=== PATIENT | female | born 1990 | race Caucasian/White ===

== ENCOUNTER 2016-06-23 23:19 | Emergency (ER) | payer BC ==
--- NOTE | 2016-06-24 01:40 | ED CLINICAL REPORT ---
Clinical Report - Physicians/Mid Levels [facility] [address] [place] [address] 06/23/2016 23:21 [id number] Time Seen: 00:07. Arrived- By private vehicle. Historian- patient. HISTORY OF PRESENT ILLNESS Chief Complaint: Injury to the left hand. The injury happened just prior to arrival. Occurred at work. The patient sustained a laceration from broken glass. Patient is experiencing mild pain. No other injury. REVIEW OF SYSTEMS The patient sustained a laceration. No swelling, tingling, numbness, weakness or foreign body. All systems otherwise negative, except as recorded above. PAST HISTORY Problems: no known problems. Additional Surgeries: Adenoidectomy. Tonsillectomy. Medications: Nexplanon Subcutaneous. Allergies: No Known Drug Allergy. SOCIAL HISTORY Smoker- current status unknown. Alcohol use. History of drug use: marijuana. ADDITIONAL NOTES The nursing notes have been reviewed. PHYSICAL EXAM Vital Signs: 06/23/2016 23:26 BP: 131/77. HR: 68. RR: 15. O2 saturation: 100%. Temp: 98.6 F. Jeffers-Brooke pain scale: 2/10. Have been reviewed. Appearance: Alert. Oriented X3. No acute distress. Head: Head atraumatic. Eyes: Eyes normal inspection. ENT: Nose normal. Neck: No decreased ROM in the neck. CVS: Pulses normal. Respiratory: No respiratory distress. Back: ROM normal. Skin: Skin warm and dry. Extremities: Dorsal left hand: mild tenderness and subcutaneous 2.0 cm laceration of the distal and radial aspect of the dorsal hand. SEE LACERATION PROCEDURE NOTE #1. Neurovascular intact distally. No erythema, swelling, abrasion, ecchymosis or puncture wound. No foreign body or deformity. No limitation of extension. No wrist injury. Hand and wrist exam otherwise negative. Extremities otherwise negative. Neuro, Vascular and Tendons: Vascular status intact. Sensation intact. Motor intact. Tendon function intact. Neuro: No motor deficit. No sensory deficit. (Grossly oriented.). LABS, X-RAYS, AND EKG Pulse Oximetry: 06/23/2016 23:26 O2 saturation: 100%. (FIO2 - room air). Interpretation: normal. PROGRESS AND PROCEDURES Laceration Repair: Location: left hand. Length: 2 cm. Complexity: simple (local anesthesia used and sutured). Wound depth/shape- subcutaneous and linear. Wound is clean. Distal neuro/vascular/tendon status normal. Tendon examined. No tendon deficit. Local anesthesia provided using 2% lidocaine no epi. Prepped with Betadine. Wound explored, cleansed, irrigated and examined to the base in bloodless field with normal saline. Closure of skin: interrupted 5-0 nylon (4 sutures). Post-procedure: she is stable and there are no complications. Bleeding is controlled and neuro-vascular status is intact distal to the wound. Dressing applied. Tetanus immunization up-to-date. Patient counseled in person regarding the patient's stable condition, diagnosis and need for follow-up. Concerns were addressed. Old medical records reviewed. Disposition: Discharged. Condition: stable and improved. CLINICAL IMPRESSION Single superficial laceration to the left index finger.No foreign body present. INSTRUCTIONS Apply ice for 15-20 minutes three times a day as needed and until better. Don't apply ice directly to skin and don't use while asleep. Protect wound and keep wound area clean. (Do not immerse, rub or scrub the wound until sutures are removed.). Apply neosporin daily. Sutures should be removed in seven days. Warnings: GENERAL WARNINGS: Return or contact your physician immediately if your condition worsens or changes unexpectedly, if not improving as expected, or if other problems arise. Your Current Medications: CONTINUE TAKING THE FOLLOWING MEDICATIONS: Nexplanon Subcutaneous. Follow-up: Follow up with your doctor in seven days for suture removal. Understanding of the discharge instructions verbalized by patient. (Electronically signed by Vilma Carey MD 06/29/2016 15:09)
--- NOTE | 2016-06-24 01:40 | ED CLINICAL REPORT ---
Clinical Report - Physicians/Mid Levels [facility] [address] [place] [address] 06/23/2016 23:21 [id number] Time Seen: 00:07. Arrived- By private vehicle. Historian- patient. HISTORY OF PRESENT ILLNESS Chief Complaint: Injury to the left hand. The injury happened just prior to arrival. Occurred at work. The patient sustained a laceration from broken glass. Patient is experiencing mild pain. No other injury. REVIEW OF SYSTEMS The patient sustained a laceration. No swelling, tingling, numbness, weakness or foreign body. All systems otherwise negative, except as recorded above. PAST HISTORY Problems: no known problems. Additional Surgeries: Adenoidectomy. Tonsillectomy. Medications: Nexplanon Subcutaneous. Allergies: No Known Drug Allergy. SOCIAL HISTORY Smoker- current status unknown. Alcohol use. History of drug use: marijuana. ADDITIONAL NOTES The nursing notes have been reviewed. PHYSICAL EXAM Vital Signs: 06/23/2016 23:26 BP: 131/77. HR: 68. RR: 15. O2 saturation: 100%. Temp: 98.6 F. Jeffers-Brooke pain scale: 2/10. Have been reviewed. Appearance: Alert. Oriented X3. No acute distress. Head: Head atraumatic. Eyes: Eyes normal inspection. ENT: Nose normal. Neck: No decreased ROM in the neck. CVS: Pulses normal. Respiratory: No respiratory distress. Back: ROM normal. Skin: Skin warm and dry. Extremities: Dorsal left hand: mild tenderness and subcutaneous 2.0 cm laceration of the distal and radial aspect of the dorsal hand. SEE LACERATION PROCEDURE NOTE #1. Neurovascular intact distally. No erythema, swelling, abrasion, ecchymosis or puncture wound. No foreign body or deformity. No limitation of extension. No wrist injury. Hand and wrist exam otherwise negative. Extremities otherwise negative. Neuro, Vascular and Tendons: Vascular status intact. Sensation intact. Motor intact. Tendon function intact. Neuro: No motor deficit. No sensory deficit. (Grossly oriented.). LABS, X-RAYS, AND EKG Pulse Oximetry: 06/23/2016 23:26 O2 saturation: 100%. (FIO2 - room air). Interpretation: normal. PROGRESS AND PROCEDURES Laceration Repair: Location: left hand. Length: 2 cm. Complexity: simple (local anesthesia used and sutured). Wound depth/shape- subcutaneous and linear. Wound is clean. Distal neuro/vascular/tendon status normal. Tendon examined. No tendon deficit. Local anesthesia provided using 2% lidocaine no epi. Prepped with Betadine. Wound explored, cleansed, irrigated and examined to the base in bloodless field with normal saline. Closure of skin: interrupted 5-0 nylon (4 sutures). Post-procedure: she is stable and there are no complications. Bleeding is controlled and neuro-vascular status is intact distal to the wound. Dressing applied. Tetanus immunization up-to-date. Patient counseled in person regarding the patient's stable condition, diagnosis and need for follow-up. Concerns were addressed. Old medical records reviewed. Disposition: Discharged. Condition: stable and improved. CLINICAL IMPRESSION Single superficial laceration to the left index finger.No foreign body present. INSTRUCTIONS Apply ice for 15-20 minutes three times a day as needed and until better. Don't apply ice directly to skin and don't use while asleep. Protect wound and keep wound area clean. (Do not immerse, rub or scrub the wound until sutures are removed.). Apply neosporin daily. Sutures should be removed in seven days. Warnings: GENERAL WARNINGS: Return or contact your physician immediately if your condition worsens or changes unexpectedly, if not improving as expected, or if other problems arise. Your Current Medications: CONTINUE TAKING THE FOLLOWING MEDICATIONS: Nexplanon Subcutaneous. Follow-up: Follow up with your doctor in seven days for suture removal. Understanding of the discharge instructions verbalized by patient. (Electronically signed by Vilma Carey MD 06/29/2016 15:09)
--- NOTE | 2016-06-24 01:40 | ED NURSING NOTES ---
Clinical Report - Nurses [facility] [address] [place] [address] 06/23/2016 23:21 Patient: BREANNA PERES TRIAGE Triage time 23:26. Acuity: LEVEL 4. Chief Complaint: INJURY TO LEFT HAND. Alert. No acute distress. --23:30 Cecilia Gaines R.N. 23:26 06/23/16. BP: 131/77. HR: 68. RR: 15. O2 saturation: 100% on room air. Temp: 98.6 F (oral). Jeffers-Brooke pain scale: 2/10. --23:30 Cecilia Gaines R.N. Weight: 68 kg stated. Height/Length: 66 inches Per Patient. BMI: 24.2. --23:28 Cecilia Gaines R.N. Medications Nexplanon Subcutaneous. --23:27 Cecilia Gaines R.N. Allergies No Known Drug Allergy. --23:27 Cecilia Gaines R.N. History Arrived by private vehicle. Historian: patient. Accompanied by family. This occurred today (at about 1930). She sustained a laceration from a broken glass. PAST MEDICAL HX: Tetanus status: up-to-date. Last tetanus: (got Tdap 1 week ago). Immunizations: up-to-date. Last normal menstrual period was 1 week ago. SOCIAL HX: Heavy tobacco smoker- less than 1 pack per day. Occasional alcohol use. History of drug use: marijuana. NUTRITIONAL RISK ASSESSMENT: The nutritional risk assessment revealed no deficiencies. FUNCTIONAL ASSESSMENT: Functional assessment: no impairments noted. --23:30 Cecilia Gaines R.N. PROBLEMS: no known problems. ADDITIONAL SURGERIES: Adenoidectomy. Tonsillectomy. --23:27 Cecilia Gaines R.N. Interventions ID band on patient. To treatment room. --23:30 Cecilia Gaines R.N. PHYSICAL ASSESSMENT Ambulatory to room. GENERAL / NEURO / PSYCH: Oriented X 4. Alert. Appears in no acute distress. EXTREMITIES: Capillary refill is less than 2 seconds in the extremities. Neuro-vascular status intact to the extremity. Dorsal left hand: laceration with bleeding. SKIN: Skin is warm and dry. --: Cecilia Gaines R.N. NURSING PROGRESS NOTES Two patient identifiers checked. Call light placed in reach. Side rails up x 1. Bed placed in lowest position. Brakes of bed on. --: Cecilia Gaines R.N. Patient ready for evaluation- chart flagged. --: Cecilia Gaines R.N. 01:45 06/24/16. WOUND REPAIR: Wound repair performed by ED physician. The wound is clean and linear. Preparation: suture tray set-up with 1% lidocaine. Wound cleansed per physician. Procedure: wound repaired with sutures. Post-procedure: she was stable, no complications and dressing applied. Total time of assist / procedure: 15 minutes. Applied clean dressing consisting of 4x4 gauze, following the application of antibiotic ointment. Secured with tape and kerlix. --02:21 Kenzie Monsalve. DISPOSITION / DISCHARGE 01:55 06/24/16. Condition at departure: improved. No learning barriers present. Discharge instructions provided and reviewed with the patient. Reviewed wound care instructions. Patient verbalized understanding. Written instructions provided in [place]. ( Patient was advised to follow up with PCP 7-10 days later for suture removal.). The patient was discharged by the physician. She was discharged home and unaccompanied at time of discharge. She left the Emergency Department ambulatory and via private vehicle. Patient driving. --02:19 Kenzie Monsalve 02:16 06/24/16. BP: 129/70. HR: 60. RR: 18. O2 saturation: 98%. Temp: deferred. Pain level now: 06/01. --02:19 Kenzie Monsalve. Locked/Released at 06/24/2016 2:24 by Kenzie Monslave,
--- NOTE | 2016-06-29 15:10 | ED MAR SUMMARY ---
..... Medication Administration Record [facility] [address], [place] [id number] Patient: BREANNA PERES Ale Visit ID: [id number] 25y, F Weight: 68.0 kg Height/Length: 66 in BMI: 24.2 ALLERGIES: No Known Drug Allergy
--- NOTE | 2016-06-29 15:10 | ED MED RECONCILIATION SUMMARY ---
Patient: BREANNA PERES Medication Reconciliation Report [facility] VisitID: [id number] [address] [place] [address] 25y, F Registration Date/Time: 06/23/2016 Weight: 68.0 kg Height/Length: 66 in. BMI: 24.2 ALLERGIES: No Known Drug Allergy The patient's Home Medications are listed below: CONTINUE TAKING THE FOLLOWING MEDICATIONS: Nexplanon Subcutaneous The source(s) of the original Home Medication information: Not obtained. The following Medications were given to the patient in the Emergency Department: None. The following Medications were prescribed to the patient: None.
--- NOTE | 2016-06-29 15:10 | ED DISCHARGE INSTRUCTIONS ---
Patient: BREANNA PERES General Instructions [facility] VisitID: [id number] [place] [address] 25y, F Registration Date/Time: 06/23/2016 Single superficial laceration to the left index finger.No foreign body present. INSTRUCTIONS Apply ice for 15-20 minutes three times a day as needed and until better. Don't apply ice directly to skin and don't use while asleep. Protect wound and keep wound area clean. (Do not immerse, rub or scrub the wound until sutures are removed.). Apply neosporin daily. Sutures should be removed in seven days. Warnings: GENERAL WARNINGS: Return or contact your physician immediately if your condition worsens or changes unexpectedly, if not improving as expected, or if other problems arise. Your Current Medications: CONTINUE TAKING THE FOLLOWING MEDICATIONS: Nexplanon Subcutaneous. Follow-up: Follow up with your doctor in seven days for suture removal. Understanding of the discharge instructions verbalized by patient. ADDITIONAL INFORMATION Laceration, Extremity (Sutures, Douds, Or Tape) A laceration is a cut through the skin. This will usually require stitches (sutures) or margaux if it is deep. Minor cuts may be treated with surgical tape closures. Home care The following guidelines will help you care for your laceration at home: Keep the wound clean and dry. If a bandage was applied and it becomes wet or dirty, replace it. Otherwise, leave it in place for the first 24 hours, then change it once a day or as directed. If stitches or margaux were used, clean the wound daily: After removing the bandage, wash the area with soap and water. Use a wet cotton swab to loosen and remove any blood or crust that forms. After cleaning, keep the wound clean and dry. Talk with your doctor before applying any antibiotic ointment to the wound. Reapply the bandage. You may remove the bandage to shower as usual after the first 24 hours, but do not soak the area in water (no swimming) until the stitches or margaux are removed. If surgical tape closures were used, keep the area clean and dry. If it becomes wet, blot it dry with a towel. The doctor may prescribe an antibiotic cream or ointment to prevent infection. Do not stop taking this medication until you have finished the prescribed course or the doctor tells you to stop. The doctor may also prescribe medications for pain. Follow the doctors instructions for taking these medications. If you have chronic liver or kidney disease or ever had a stomach ulcer or GI bleeding, talk with your doctor before using these medicines. Follow-up care Follow up with your health care provider. Most skin wounds heal within ten days. However, an infection may sometimes occur despite proper treatment. Therefore, check the wound daily for the signs of infection listed below. Stitches and margaux should be removed within 714 days. If surgical tape closures were used, you may remove them after 10 days, if they have not fallen off by then. Notify your doctor if you notice persistent numbness or weakness in the injured extremity. (Note:A radiologist will review any X-rays that were taken. We will notify you of any new findings that may affect your care.) When to seek medical care Get prompt medical attention if any of these occur: Increasing pain in the wound Redness, swelling, or pus coming from the wound Fever of 100.4F (38C) or higher, or as directed by your health care provider If stitches or margaux come apart or fall out before your next appointment If the surgical tape closures fall off within seven days, or the wound edges re-open Bleeding not controlled by direct pressure You have been given the following additional information: Laceration, Extrem (Suture, Staple, Or Tape) (Electronically signed by Vilma Carey MD 06/29/2016 15:09)
--- NOTE | 2016-06-29 15:10 | ED MED RECONCILIATION SUMMARY ---
Patient: BREANNA PERES Medication Reconciliation Report [facility] VisitID: [id number] [address] [place] [address] 25y, F Registration Date/Time: 06/23/2016 Weight: 68.0 kg Height/Length: 66 in. BMI: 24.2 ALLERGIES: No Known Drug Allergy The patient's Home Medications are listed below: CONTINUE TAKING THE FOLLOWING MEDICATIONS: Nexplanon Subcutaneous The source(s) of the original Home Medication information: Not obtained. The following Medications were given to the patient in the Emergency Department: None. The following Medications were prescribed to the patient: None.
--- NOTE | 2016-06-29 15:10 | ED MAR SUMMARY ---
..... Medication Administration Record [facility] [address], [place] [id number] Patient: BREANNA PERES Ale Visit ID: [id number] 25y, F Weight: 68.0 kg Height/Length: 66 in BMI: 24.2 ALLERGIES: No Known Drug Allergy
== END 2016-06-24 01:55 | disposition home or self-care (01) ==
LOC: ED SRH 23:19
DX: S61.211A Laceration without foreign body of left index finger without damage to nail, initial encounter (principal); W25.XXXA Contact with sharp glass, initial encounter; Y93.89 Activity, other specified; Y99.0 Civilian activity done for income or pay; Y92.9 Unspecified place or not applicable; F17.200 Nicotine dependence, unspecified, uncomplicated